=== PATIENT | female | born 1980 | race Caucasian/White ===

== ENCOUNTER 2020-04-15 10:00 | Inpatient (IN) ==
[2020-04-15] MEDS ORDERED: Naloxone 0.4 MG/ML INJ IVP PRN ×2 (10:48→10:51)
[2020-04-15] MEDS ORDERED: Metoclopramide 10 MG/2 ML VIAL IVP PRN (10:48)
[2020-04-15] MEDS ORDERED: Famotidine 20 MG/2 ML VIAL IVP PRN (10:48)
[2020-04-15] MEDS ORDERED: Ondansetron 4 MG/2 ML VIAL IVP PRN (10:51)
[2020-04-15] MEDS ORDERED: Azithromycin 500 MG in 0.9 % Sodium Chloride 250 ML IVPB ONE (10:51)
[2020-04-15 11:28] VITALS: BP 128/87
[2020-04-15 11:53] LABS: Basophils # 0.1 K/mcL (0.0-0.2); Basophils % 0.5 %; Eosinophils # 0.2 K/mcL (0.0-0.6); Eosinophils % 1.2 %; Hematocrit 39.9 % (35.3-44.9); Immature Granulocytes % 1.4 % (0-4); Lymphocytes # 2.8 K/mcL (0.6-4.6); Lymphocytes % 15.8 %; Mean Corpuscular HGB Conc 32.6 g/dL (31.6-35.5); Mean Corpuscular Hemoglobin 29.1 pg (28.0-33.3); Mean Corpuscular Volume 89.3 fL (83.0-100.0); Mean Platelet Volume 11.5 fL (9.4-12.4); Monocytes # 0.8 K/mcL (0.0-1.3); Monocytes % 4.5 %; Neutrophils # 13.5 K/mcL (1.6-8.9); Platelet Count 304 K/mcL (140-400); Red Blood Count 4.47 M/mcL (3.82-4.97); Red Cell Distribution Width 13.3 % (11.5-14.5); Segmented Neutrophils % 76.6 %; White Blood Count 17.6 K/mcL (4.3-11.1)
[2020-04-15 12:04] LABS: Amphetamine Screen,Urine Negative ng/mL (Cutoff=1000); Barbiturate Screen,Urine Negative ng/mL (Cutoff=200); Benzodiazepines Screen,Urine Negative ng/mL (Cutoff=200); Cannabinoid Screen,Urine Positive ng/mL (Cutoff = 50); Cocaine Screen,Urine Negative ng/mL (Cutoff= 300); Opiate Screen,Urine Negative ng/mL (Cutoff=300); Phencyclidine Screen,Urine Negative ng/mL (Cutoff=25)
[2020-04-15] MEDS: Ringers Solution, Lactated 1,000 ML IVC SCH (12:35)
[2020-04-15] MEDS: miSOPROStoL 25 MCG TABLET PO PRN ×2 (12:35→17:06)
[2020-04-15] MEDS ORDERED: Ropivacaine/PF 0.2% 20 ML VIAL EP ONE (18:07)
[2020-04-15] MEDS ORDERED: *HR* FentaNYL (PF) 100 MCG/2 ML VIAL EP ONE (18:07)
[2020-04-15] MEDS ORDERED: EPHEDrine 50 MG/ML VIAL IVP PRN (18:07)
[2020-04-15] MEDS ORDERED: miSOPROStoL 25 MCG TABLET PO PRN (21:52)
[2020-04-16] MEDS: Oxytocin 20 units/ LR 1000 mL 20 UNIT/1,000 ML BAG IVC SCH (01:52)
[2020-04-16] MEDS: *HR* Buprenorphine HCl 2 MG SUBLINGUAL TABLET SL SCH (10:38)
[2020-04-16] MEDS ORDERED: Ropivacaine/PF 0.2% 20 ML VIAL EP ONE (11:10)
[2020-04-16] MEDS ORDERED: *HR* FentaNYL (PF) 100 MCG/2 ML VIAL ONE (11:12)
[2020-04-16] MEDS: Nicotine 21 MG PATCH.TD24 TD SCH (13:52)
[2020-04-16 14:55] LABS: Adenovirus Not Detected (Not Detect); Bordetella Pertussis Not Detected (Not Detect); Chlamydophila pneumoniae Not Detected (Not Detect); Coronavirus 229E Not Detected (Not Detect); Coronavirus HKU1 Not Detected (Not Detect); Coronavirus NL63 Not Detected (Not Detect); Coronavirus OC43 Not Detected (Not Detect); Human Metapneumovirus Not Detected (Not Detect); Human Rhinovirus/Enterovirus Not Detected (Not Detect); Influenza A Subtype 2009 H1 Not Detected (Not Detect); Influenza B Not Detected (Not Detect); Mycoplasma pneumoniae Not Detected (Not Detect); Parainfluenza Virus 1 Not Detected (Not Detect); Parainfluenza Virus 2 Not Detected (Not Detect); Parainfluenza Virus 3 Not Detected (Not Detect); Parainfluenza Virus 4 Not Detected (Not Detect); Respiratory Syncytial Virus Not Detected (Not Detect); SARS-CoV-2 Not Detected (Not Detect)
[2020-04-16] MEDS: Ringers Solution, Lactated 1,000 ML IVC SCH (17:49)
[2020-04-16] MEDS: Epidural Premix (fent/bupiv) 110 ML EP SCH (19:08)
[2020-04-17] MEDS: Ringers Solution, Lactated 1,000 ML IVC SCH ×2 (01:08→07:43)
[2020-04-17] MEDS: *HR* Buprenorphine HCl 2 MG SUBLINGUAL TABLET SL SCH (01:09)
[2020-04-17] MEDS: Epidural Premix (fent/bupiv) 110 ML EP SCH (02:44)
[2020-04-17] MEDS: Oxytocin 20 units/ LR 1000 mL 20 UNIT/1,000 ML BAG IVC SCH (07:51)
[2020-04-17] MEDS ORDERED: D5% in Lactated Ringers 1,000 ML IVC SCH (08:45)
[2020-04-17] MEDS ORDERED: D5% in Lactated Ringers 500 ML IV SOLUTION IVC SCH (08:45)
[2020-04-17] MEDS: Nicotine 21 MG PATCH.TD24 TD SCH ×2 (10:31→14:30)
== END 2020-04-17 14:30 | disposition home or self-care (01) | DRG 566 ==
LOC: 1NENULAB 10:38
PROVIDERS: ADMIT Student in an Organized Health Care Education/Training Program; ATTEND Student in an Organized Health Care Education/Training Program

== ENCOUNTER 2020-04-21 16:00 | Inpatient (IN) ==
[2020-04-21] MEDS ORDERED: Naloxone 0.4 MG/ML INJ IVP PRN (16:02)
[2020-04-21] MEDS ORDERED: *HR* FentaNYL (PF) 100 MCG/2 ML VIAL IVP PRN (16:02)
[2020-04-21] MEDS ORDERED: Metoclopramide 10 MG/2 ML VIAL IVP PRN (16:02)
[2020-04-21] MEDS ORDERED: Famotidine 20 MG/2 ML VIAL IVP PRN (16:02)
[2020-04-21] MEDS ORDERED: Azithromycin 500 MG in 0.9 % Sodium Chloride 250 ML IVPB ONE (16:02)
[2020-04-21] MEDS ORDERED: Ondansetron 4 MG/2 ML VIAL IVP PRN (16:02)
[2020-04-21 17:29] LABS: Basophils # 0.1 K/mcL (0.0-0.2); Basophils % 0.4 %; Eosinophils # 0.2 K/mcL (0.0-0.6); Eosinophils % 1.1 %; Hematocrit 42.4 % (35.3-44.9); Hemoglobin 13.9 g/dL (11.5-15.4); Immature Granulocytes % 0.8 % (0-4); Lymphocytes # 3.7 K/mcL (0.6-4.6); Lymphocytes % 18.2 %; Mean Corpuscular HGB Conc 32.8 g/dL (31.6-35.5); Mean Corpuscular Volume 88.5 fL (83.0-100.0); Mean Platelet Volume 12.1 fL (9.4-12.4); Monocytes # 0.9 K/mcL (0.0-1.3); Monocytes % 4.5 %; Platelet Count 299 K/mcL (140-400); Red Blood Count 4.79 M/mcL (3.82-4.97); Red Cell Distribution Width 13.2 % (11.5-14.5)
[2020-04-21] MEDS ORDERED: Ropivacaine/PF 0.2% 20 ML VIAL EP ONE (17:40)
[2020-04-21] MEDS ORDERED: EPHEDrine 50 MG/ML VIAL IVP PRN (17:40)
[2020-04-21] MEDS ORDERED: *HR* FentaNYL (PF) 100 MCG/2 ML VIAL EP ONE (17:40)
[2020-04-21] MEDS ORDERED: *HR* FentaNYL (PF) 100 MCG/2 ML VIAL ONE (17:42)
[2020-04-21] MEDS ORDERED: Ropivacaine/PF 0.2% 20 ML VIAL ONE (17:42)
[2020-04-21] MEDS ORDERED: Epidural Premix (fent/bupiv) 110 ML EP SCH (17:45)
[2020-04-21 17:57] LABS: Amphetamine Screen,Urine Negative ng/mL (Cutoff=1000); Barbiturate Screen,Urine Negative ng/mL (Cutoff=200); Benzodiazepines Screen,Urine Negative ng/mL (Cutoff=200); Cannabinoid Screen,Urine Positive ng/mL (Cutoff = 50); Cocaine Screen,Urine Negative ng/mL (Cutoff= 300); Opiate Screen,Urine Negative ng/mL (Cutoff=300); Phencyclidine Screen,Urine Negative ng/mL (Cutoff=25)
[2020-04-21] MEDS: miSOPROStoL 25 MCG TABLET VG PRN ×2 (18:17→22:34)
[2020-04-21] MEDS ORDERED: Nicotine 14 MG PATCH.TD24 TD SCH (20:30)
[2020-04-21] MEDS: buprenorphine HCL 2 MG, buprenorphine HCL 8 MG SL SCH (21:14)
[2020-04-22] MEDS: Ringers Solution, Lactated 1,000 ML IVC SCH ×3 (00:46→12:10)
[2020-04-22] MEDS ORDERED: Oxytocin 20 units/ LR 1000 mL 20 UNIT/1,000 ML BAG IVC SCH ×2 (03:15→18:52)
[2020-04-22] MEDS ORDERED: *HR* Buprenorphine HCl 8 MG TAB.SUBL SL SCH (09:00)
[2020-04-22] MEDS ORDERED: buprenorphine HCL 2 MG, buprenorphine HCL 8 MG SL SCH (09:00)
[2020-04-22] MEDS: buprenorphine HCL 2 MG, buprenorphine HCL 8 MG SL SCH (09:44)
[2020-04-22] MEDS ORDERED: Lidocaine 1% 20 ML MDV ONE (15:46)
[2020-04-22] MEDS ORDERED: Ibuprofen 600 MG TABLET PO PRN (18:52)
[2020-04-22] MEDS ORDERED: Benzocaine/Menthol 56 GM AEROSOL SPRAY TP PRN (18:52)
[2020-04-22] MEDS ORDERED: Acetaminophen 325 MG TABLET PO PRN (18:52)
[2020-04-22] MEDS ORDERED: Lanolin 7 G OINT...G. TP PRN (18:52)
[2020-04-22] MEDS ORDERED: *HR* Buprenorphine HCl 2 MG SUBLINGUAL TABLET SL SCH (21:00)
[2020-04-23 05:48] LABS: Basophils # 0.1 K/mcL (0.0-0.2); Basophils % 0.4 %; Eosinophils # 0.2 K/mcL (0.0-0.6); Hematocrit 36.1 % (35.3-44.9); Immature Granulocytes % 0.6 % (0-4); Lymphocytes # 3.9 K/mcL (0.6-4.6); Lymphocytes % 17.5 %; Mean Corpuscular HGB Conc 31.9 g/dL (31.6-35.5); Mean Corpuscular Hemoglobin 29.3 pg (28.0-33.3); Mean Corpuscular Volume 91.9 fL (83.0-100.0); Mean Platelet Volume 11.7 fL (9.4-12.4); Monocytes # 1.2 K/mcL (0.0-1.3); Monocytes % 5.4 %; Neutrophils # 16.6 K/mcL (1.6-8.9); Platelet Count 221 K/mcL (140-400); Red Blood Count 3.93 M/mcL (3.82-4.97); Red Cell Distribution Width 13.2 % (11.5-14.5); Segmented Neutrophils % 75.1 %; White Blood Count 22.1 K/mcL (4.3-11.1)
[2020-04-23 06:20] LABS: Hemoglobin 11.5 g/dL (11.5-15.4)
[2020-04-23 08:44] VITALS: BP 122/72
[2020-04-23] MEDS ORDERED: *HR* Buprenorphine HCl 8 MG TAB.SUBL SL SCH (09:00)
[2020-04-23] MEDS ORDERED: *HR* Buprenorphine HCl 2 MG SUBLINGUAL TABLET SL SCH (09:00)
[2020-04-23] MEDS ORDERED: NON-FORMULARY MEDICATION 1 EACH EACH (Prenatal 19 Tablet 1 TAB) PO SCH (09:00)
[2020-04-23] MEDS ORDERED: Prenatal Vit/FA 1 EACH TABLET PO SCH (09:00)
== END 2020-04-23 13:04 | disposition home or self-care (01) | DRG 560 ==
LOC: 1NENULAB → 1NENUOBS 04-22 17:47
PROVIDERS: ADMIT Obstetrics & Gynecology; ATTEND Obstetrics & Gynecology